=== PATIENT | female | born 1960 | race Caucasian/White ===

== ENCOUNTER → 2024-04-28 10:05 | Outpatient (REF) | payer OTHER, SELFPAY | LOC: HWWDC 10:05 | PROVIDERS: ATTENDING PHYSICIAN Nurse Practitioner Family; FAMILY PHYSICIAN Internal Medicine | DX: Z12.31 Encounter for screening mammogram for malignant neoplasm of breast (principal) | CPT/HCPCS: 77063; 77067 ==

== ENCOUNTER → 2024-07-05 10:09 | Outpatient (REF) | payer OTHER, SELFPAY | LOC: HWRAD 10:09 | PROVIDERS: ATTENDING PHYSICIAN Nurse Practitioner Adult Health | DX: M35.9 Systemic involvement of connective tissue, unspecified (principal); R94.31 Abnormal electrocardiogram [ECG] [EKG] | CPT/HCPCS: 71046 ==

== ENCOUNTER → 2024-09-14 11:35 | Outpatient (REF) | payer MEDICARE, SELFPAY | LOC: HWCARD 11:35 | PROVIDERS: ATTENDING PHYSICIAN Family Medicine | DX: M35.9 Systemic involvement of connective tissue, unspecified (principal); R94.31 Abnormal electrocardiogram [ECG] [EKG]; R06.09 Other forms of dyspnea | CPT/HCPCS: 93005 ==

== ENCOUNTER → 2024-09-15 15:06 | Outpatient (REF) | payer MEDICARE, SELFPAY | LOC: RAD 15:06 | PROVIDERS: ATTENDING PHYSICIAN Family Medicine | DX: M35.9 Systemic involvement of connective tissue, unspecified (principal); R94.31 Abnormal electrocardiogram [ECG] [EKG]; R06.09 Other forms of dyspnea | CPT/HCPCS: 71260; Q9967 ==

== ENCOUNTER → 2024-09-20 14:18 | Outpatient (REF) | payer MEDICARE, SELFPAY | LOC: HWRAD 14:18 | PROVIDERS: ATTENDING PHYSICIAN Nurse Practitioner Family; FAMILY PHYSICIAN Family Medicine | DX: N28.89 Other specified disorders of kidney and ureter (principal) | CPT/HCPCS: 76770 ==

== ENCOUNTER → 2024-09-22 10:06 | Outpatient (REF) | payer MEDICARE, SELFPAY | LOC: HWRCS 10:06 | PROVIDERS: ATTENDING PHYSICIAN Family Medicine | DX: M35.6 Relapsing panniculitis [Weber-Christian] (principal); R94.31 Abnormal electrocardiogram [ECG] [EKG]; R06.09 Other forms of dyspnea | CPT/HCPCS: 93306 ==

== ENCOUNTER → 2025-01-10 11:48 | Outpatient (REF) | payer MEDICARE, SELFPAY | LOC: DHSLP 11:48 | PROVIDERS: ATTENDING PHYSICIAN Internal Medicine Critical Care Medicine; FAMILY PHYSICIAN Internal Medicine | DX: G47.30 Sleep apnea, unspecified (principal); R06.83 Snoring | CPT/HCPCS: 95800 ==

== ENCOUNTER → 2025-04-07 08:43 | Outpatient (REF) | payer MEDICARE, SELFPAY | LOC: RAD 08:43 | PROVIDERS: ATTENDING PHYSICIAN Surgery; FAMILY PHYSICIAN Family Medicine | DX: K44.9 Diaphragmatic hernia without obstruction or gangrene (principal); K21.9 Gastro-esophageal reflux disease without esophagitis | CPT/HCPCS: 74246 ==

== ENCOUNTER → 2025-04-25 13:08 | Outpatient (REF) | payer MEDICARE, SELFPAY | LOC: RAD 13:08 | PROVIDERS: ATTENDING PHYSICIAN Otolaryngology; FAMILY PHYSICIAN Family Medicine | DX: R06.1 Stridor (principal) | CPT/HCPCS: 70491; Q9967 ==

== ENCOUNTER 2025-05-22 06:36 | Day surgery (SDC) | payer MEDICARE, SELFPAY ==
[2025-05-22] VITALS (9 sets, daily range): BP systolic 102–156; BP diastolic 50–83; BMI 33.0
[2025-05-22] MEDS: NSS 500 IV (13:51)
[2025-05-22] MEDS: DUONEB 3 ML INH (17:17)
[2025-05-22] MEDS: VAPONEFRIN NEBS 0.5 ML INH (17:17)
[2025-05-22] MEDS: TYLENOL 1000 MG PO (18:03)
== END 2025-05-22 18:26 | disposition home or self-care (01) ==
LOC: SDS 06:36
PROVIDERS: ATTENDING PHYSICIAN Internal Medicine Critical Care Medicine
DX: J39.8 Other specified diseases of upper respiratory tract (principal); J38.6 Stenosis of larynx; R91.8 Other nonspecific abnormal finding of lung field; J98.8 Other specified respiratory disorders; R93.89 Abnormal findings on diagnostic imaging of other specified body structures; J37.0 Chronic laryngitis; J42 Unspecified chronic bronchitis; G47.8 Other sleep disorders
CPT/HCPCS: 31629; 31645; 31624; 31623; 31654; 71045; 87015; 87070; 87102; 87116; 87147; 87186; 87205; 88112; 88173; 88305; 94640; C1713